=== PATIENT | male | born 1990 | race Caucasian/White ===

== ENCOUNTER 2018-01-24 23:52 | Emergency (ER) | payer OTHER ==
[2018-01-25] MEDS ORDERED: RX INFO: IV CONTRAST WAS GIVEN 1 EACH MISC MISCELLANE PRN (01:26)
[2018-01-25 01:57] LABS: Basophils # (A) 0.1 k/uL (0-0.2); Basophils % (A) 1 %; Eosinophils # (A) 0.1 k/uL (0-0.7); Eosinophils % (A) 1 %; HCT 44.3 % (39.0-53.0); HGB 16.1 gm/dL (13.0-17.5); Lymphocytes # (A) 3.9 k/uL (1.0-4.8); Lymphocytes % (A) 33 %; MCH 31.1 pg (25.0-35.0); MCHC 36.3 g/dL (31.0-37.0); MCV 85.8 fL (80.0-100.0); Mean Platelet Volume 6.6; Monocytes # (A) 0.6 k/uL (0-1.0); Monocytes % (A) 5 %; Neutrophils % (A) 59 %; Platelet Count 346 k/uL (150-450); RBC 5.17 m/uL (4.30-5.90); RDW 12.3 % (11.5-15.5)
[2018-01-25 02:10] LABS: Anion Gap 15 mmol/L; Blood Urea Nitrogen 20 mg/dL (9-20); Calcium 9.8 mg/dL (8.4-10.2); Carbon Dioxide 23 mmol/L (22-30); Chloride 105 mmol/L (98-107); Glucose 89 mg/dL (74-99); Potassium 4.1 mmol/L (3.5-5.1); Sodium 143 mmol/L (137-145)
--- NOTE | 2018-01-25 02:20 | ED ---
Eye Problem HPI - General Chief complaint: Eye Problems Stated complaint: Vision loss Time Seen by Provider: 01/25/18 01:09 Source: patient, RN notes reviewed Mode of arrival: ambulatory Limitations: no limitations - History of Present Illness Initial comments: This is a 27-year-old male who presents to the emergency department with chief complaint of vision loss. Patient states that he has been having intermittent episodes of vision loss in his left eye for the past 1-1/2 months. He states that he loses his vision in his left eye at random moments. States that the vision loss is painless. He states that when it does occur it lasts for a few seconds at a time. At first, patient states that vision loss is complete, however he then states that approximately 75% of his vision is lost. Patient states that today vision in his left eye went out approximately 10-12 times. He states the only associated symptom during these episodes of vision loss is a generalized headache. He denies any head injuries or trauma. Denies fevers or chills, chest pain or shortness of breath, abdominal pain, nausea or vomiting, diarrhea or constipation, dizziness or hearing changes. - Related Data Home Medications Medication Instructions Recorded Confirmed No Known Home Medications [No 01/25/18 01/25/18 Known Home Medications] Allergies Allergy/AdvReac Type Severity Reaction Status Date / Time No Known Allergies Allergy Verified 01/25/18 00:06 Review of Systems ROS Statement: Those systems with pertinent positive or pertinent negative responses have been documented in the HPI. ROS Other: All systems not noted in ROS Statement are negative. Past Medical History Past Medical History: No Reported History History of Any Multi-Drug Resistant Organisms: None Reported Past Surgical History: No Surgical Hx Reported Past Psychological History: ADD/ADHD, Anxiety Smoking Status: Former smoker Past Alcohol Use History: None Reported Past Drug Use History: None Reported General Exam - General Exam Comments Initial Comments: General: Awake and alert, well-developed; in no apparent distress. HEENT: Head atraumatic, normocephalic. Pupils are equal, round and reactive to light. Extraocular movements intact. Bilateral conjunctiva are non-injected. No evidence of foreign body. Oropharynx moist without erythema or exudate. Neck: Supple. Normal ROM. Cardiovascular: Regular rate and rhythm. No murmurs, rubs or gallops. Chest symmetrical. Respiratory: Lungs clear to auscultation bilaterally. No wheezes, rales or rhonchi. Normal respiratory effort with no use of accessory muscles. Musculoskeletal: Normal ROM, no tenderness bilateral upper and lower extremities. Ambulating normally. Skin: [place], warm and dry without rashes or lesions. Neurological: Alert and oriented x3. CN II-XII grossly intact. Speech is fluent and answers are appropriate. No focal neuro deficits. Psychiatric: Normal mood and affect. No overt signs of depression or anxiety noted. Limitations: no limitations Course Vital Signs 01/25/18 01/25/18 01/25/18 00:02 03:28 04:00 Temperature 98.5 F 98 F Pulse Rate 102 H 81 74 Respiratory 20 19 18 Rate Blood Pressure 165/110 158/110 145/99 O2 Sat by Pulse 98 100 100 Oximetry Medical Decision Making - Medical Decision Making This is a 27-year-old male who presented to the emergency department with chief complaint of intermittent vision loss in his left eye for the past one and half months. Patient denies any eye pain. He admits only to associated headaches. CT brain and CT angiogram of head and neck revealed no acute abnormalities. Recommended admission for neurology consult, however patient declines. He states he would rather follow up outpatient with his primary care provider. Patient also was noted to have a high blood pressure at 160s over 110. Given IV labetalol in the emergency department. Recommended following up with primary care provider regarding this blood pressure. Patient's vital signs are stabilized and he is in no acute distress. He will be discharged home at this time. Patient is in agreement with plan voices understanding. All questions were answered. - Lab Data Result diagrams: 01/25/18 01:42 01/25/18 01:42 Lab Results 01/25/18 01/25/18 Range/Units 01:42 01:42 WBC 12.0 H (3.8-10.6) k/uL RBC 5.17 (4.30-5.90) m/uL Hgb 16.1 (13.0-17.5) gm/dL Hct 44.3 (39.0-53.0) % MCV 85.8 (80.0-100.0) fL MCH 31.1 (25.0-35.0) pg MCHC 36.3 (31.0-37.0) g/dL RDW 12.3 (11.5-15.5) % Plt Count 346 (150-450) k/uL Neutrophils % 59 % Lymphocytes % 33 % Monocytes % 5 % Eosinophils % 1 % Basophils % 1 % Neutrophils # 7.0 (1.3-7.7) k/uL Lymphocytes # 3.9 (1.0-4.8) k/uL Monocytes # 0.6 (0-1.0) k/uL Eosinophils # 0.1 (0-0.7) k/uL Basophils # 0.1 (0-0.2) k/uL Sodium 143 (137-145) mmol/L Potassium 4.1 (3.5-5.1) mmol/L Chloride 105 (98-107) mmol/L Carbon Dioxide 23 (22-30) mmol/L Anion Gap 15 mmol/L BUN 20 (9-20) mg/dL Creatinine 0.80 (0.66-1.25) mg/dL Est GFR (CKD-EPI)AfAm >90 (>60 ml/min/1.73 sqM) Est GFR (CKD-EPI)NonAf >90 (>60 ml/min/1.73 sqM) Glucose 89 (74-99) mg/dL Calcium 9.8 (8.4-10.2) mg/dL - Radiology Data Radiology results: report reviewed CT brain conclusion: Normal computed tomography scan of the brain. CT angiogram head and neck conclusion: Negative CT angiogram of the neck. Negative CT angiogram of the brain. Disposition Clinical Impression: Vision loss Disposition: HOME SELF-CARE Condition: Good Instructions: Blurred Vision (ED) Additional Instructions: Please follow up with primary care provider within 1-2 days. Return to emergency department if symptoms should worsen or any concerns arise. Is patient prescribed a controlled substance at discharge?: No Referrals: Jazmin Valencia DO [Primary Care Provider] - 1-2 days Time of Disposition: 03:33
--- NOTE | 2018-01-25 02:52 | CT ---
EXAMINATION TYPE: CT angio head neck DATE OF EXAM: 01/25/2018 HISTORY: headache COMPARISON: NONE CT DLP: 1619.70 mGycm. Automated Exposure Control for Dose Reduction was Utilized. TECHNIQUE: CTA scan of the head and neck is performed with IV Contrast, patient injected with 65 mL of Isovue 370, axial images are obtained, coronal and sagittal reformatted images are reviewed. Three -D reconstructed images are created on an independent workstation and reviewed. FINDINGS: There is normal branching pattern of the great vessels on the aortic arch. There is wide patency of t he common internal and external carotid arteries. There is no evidence of stenosis or dissection. The right vertebral artery is slightly larger than the left. There is arterial flow in the vertebrobasilar artery system. There is arterial flow in the anterior middle and posterior cerebral arteries. I see no evidence of a neurysm or neovascularity. There is no evidence of arterial stenosis. There is no mass effect. There is normal contrast opacification of the venous sinuses. CONCLUSION: Negative CT angiogram of the neck. Negative CT angiogram of the brain.
--- NOTE | 2018-01-25 02:53 | CT ---
EXAMINATION TYPE: CT brain wo con DATE OF EXAM: 01/25/2018 COMPARISON: NONE HISTORY: headache CT DLP: 1619.70 mGycm. Automated Exposure Control for Dose Reduction was Utilized. TECHNIQUE: CT scan of the head is performed without contrast. FINDINGS: Ventricles and sulci appear normal. There is no mass effect nor midline shift. There is n o sign of intracranial hemorrhage. Calvarium is intact. CONCLUSION: Normal CT scan of the brain.
[2018-01-25] MEDS ORDERED: LABETALOL 5 MG/ML VIAL MDV IVP STA (03:32)
[2018-01-25 04:01] VITALS: BP 145/99; PULSE 74; RESP 18; TEMP 98
== END 2018-01-25 04:08 | disposition home or self-care (01) ==
LOC: EC 23:52
DX: H54.7 Unspecified visual loss (principal); R51 Headache; R03.0 Elevated blood-pressure reading, without diagnosis of hypertension; Z87.891 Personal history of nicotine dependence
CPT/HCPCS: 36415; 80048; 85025; 70496; 70450; 70498; 99284; 96374; Q9967

== ENCOUNTER 2022-03-08 11:08 | Emergency (ER) | payer OTHER ==
--- NOTE | 2022-03-08 12:32 | XR ---
EXAMINATION TYPE: XR chest 2V DATE OF EXAM: 03/08/2022 COMPARISON: 11/11/2011 INDICATION: Difficulty breathing, cough TECHNIQUE: Frontal and lateral views of the chest are obtained. FINDINGS: The heart size is prominent. The pulmonary vasculature is normal. Mild diffuse increased lung markings are present bilaterally at the lung bases. Correlate for atelect asis and pneumonia. Follow-up is recommended. IMPRESSION: 1. Bibasilar infiltrates. Correlate for atelectasis and pneumonia. 2. Mild cardiomegaly
[2022-03-08] MEDS ORDERED: SODIUM CHLORIDE 0.9% 1,000 ML IV STA (12:54)
[2022-03-08] MEDS ORDERED: ALBUTEROL HFA INHALER INHALATION STA (12:54)
--- NOTE | 2022-03-08 13:00 | ED ---
General Adult HPI - General Chief complaint: Shortness of Breath Stated complaint: SOB Time Seen by Provider: 03/08/22 12:47 Source: patient, RN notes reviewed Mode of arrival: ambulatory Limitations: no limitations - History of Present Illness Initial comments: Patient is a pleasant 31-year-old male presenting to the emergency Department with cough. Symptoms started around 2 weeks ago. Patient does have productive yellow sputum. Patient is slightly more fatigued than normal. He should does have some exertional dyspnea. Patient may have some mild sinus congestion however this is chronic and fairly unchanged. No fevers. No leg pain or leg sw elling. No history of chronic lung problems. - Related Data Previous Rx's Medication Instructions Recorded Albuterol Sulfate [Albuterol 2 puff INHALATION Q6H PRN #8.5 gm 03/08/22 Sulfate Hfa] Azithromycin [Zithromax Z-pack (6 250 mg PO DIRECTED #6 tab 03/08/22 tabs)] Allergies Allergy/AdvReac Type Severity Reaction Status Date / Time No Known Allergies Allergy Verified 03/08/22 11:36 Review of Systems ROS Statement: Those systems with pertinent positive or pertinent negative responses have been documented in the HPI. ROS Other: All systems not noted in ROS Statement are negative. Constitutional: Denies: fever ENT: Denies: ear pain Respiratory: Reports: as per HPI, cough Cardiovascular: Denies: chest pain Endocrine: Reports: fatigue Gastrointestinal: Denies: abdominal pain, vomiting, diarrhea Genitourinary: Denies: dysuria Musculoskeletal: Denies: back pain Skin: Denies: rash Neurological: Denies: weakness Past Medical History Past Medical History: No Reported History History of Any Multi-Drug Resistant Organisms: None Reported Past Surgical History: No Surgical Hx Reported Past Psychological History: ADD/ADHD, Anxiety Past Alcohol Use History: None Reported Past Drug Use History: None Reported General Exam Limitations: no limitations General appearance: alert Head exam: Present: normocephalic Eye exam: Present: normal appearance Neck exam: Present: normal inspection Respiratory exam: Present: rhonchi Cardiovascular Exam: Present: tachycardia GI/Abdominal exam: Present: soft. Absent: tenderness Extremities exam: Present: normal inspection. Absent: pedal edema, calf tenderness Neurological exam: Present: alert Psychiatric exam: Present: normal affect, normal mood Skin exam: Present: normal color Course Vital Signs 03/08/22 03/08/2203/08/22 11:30 13:15 14:41 Temperature 98.4 F Pulse Rate 118 H 117 H 108 H Respiratory 22 18 18 Rate Blood Pressure 200/143 198/139 161/104 O2 Sat by Pulse 98 96 95 Oximetry Medical Decision Making - Medical Decision Making Patient reevaluated and resting complain bed. Patient feels much better following inhaler. Blood pressure and heart rate have improved. Heart rate 89. Blood pressure patient states chronicly is elevated when he does not feel well. Patient refuses medication for this. Patient feels a will correct itself when he feels better. Patient is agreeable to close follow-up with his doctor reg arding his blood pressure. - Lab Data Result diagrams: 03/08/22 13:12 03/08/22 13:12 Lab Results 03/08/22 03/08/22 03/08/22 Range/Units 13:12 13:12 13:12 WBC 11.6 H (3.8-10.6) k/uL RBC 5.49 (4.30-5.90) m/uL Hgb 16.6 (13.0-17.5) gm/dL Hct 48.6 (39.0-53.0) % MCV 88.4 (80.0-100.0) fL MCH 30.3 (25.0-35.0) pg MCHC 34.3 (31.0-37.0) g/dL RDW 13.2 (11.5-15.5) % Plt Count 377 (150-450) k/uL MPV 7.9 Neutrophils % 66 % Lymphocytes % 25 % Monocytes % 5 % Eosinophils % 2 % Basophils % 0 % Neutrophils # 7.7 (1.3-7.7) k/uL Lymphocytes # 2.9 (1.0-4.8) k/uL Monocytes # 0.6 (0-1.0) k/uL Eosinophils # 0.2 (0-0.7) k/uL Basophils # 0.0 (0-0.2) k/uL PT 9.8 (9.0-12.0) sec INR 0.9 (<1.2) APTT 26.5 (22.0-30.0) sec D-Dimer 0.52 (<0.60) mg/L FEU Sodium 138 (137-145) mmol/L Potassium 4.6 (3.5-5.1) mmol/L Chloride 109 H (98-107) mmol/L Carbon Dioxide 18 L (22-30) mmol/L Anion Gap 11 mmol/L BUN 16 (9-20) mg/dL Creatinine 0.99 (0.66-1.25) mg/dL Est GFR (CKD-EPI)AfAm >90 (>60 ml/min/1.73 sqM) Est GFR (CKD-EPI)NonAf >90 (>60 ml/min/1.73 sqM) Glucose 98 (74-99) mg/dL Plasma Lactic Acid [place] (0.7-2.0) mmol/L Calcium 9.0 (8.4-10.2) mg/dL Total Bilirubin 0.7 (0.2-1.3) mg/dL AST 35 (17-59) U/L ALT 35 (4-49) U/L Alkaline Phosphatase 65 (38-126) U/L NT-Pro-B Natriuret Pep pg/mL Total Protein 7.5 (6.3-8.2) g/dL Albumin 4.3 (3.5-5.0) g/dL Coronavirus (PCR) (Not Detectd) Influenza Type A RNA (Not Detectd) Influenza Type B (PCR) (Not Detectd) 03/08/22 03/08/22 03/08/22 Range/Units 13:12 13:12 13:12 WBC (3.8-10.6) k/uL RBC (4.30-5.90) m/uL Hgb (13.0-17.5) gm/dL Hct (39.0-53.0) % MCV (80.0-100.0) fL MCH (25.0-35.0) pg MCHC (31.0-37.0) g/dL RDW (11.5-15.5) % Plt Count (150-450) k/uL MPV Neutrophils % % Lymphocytes % % Monocytes % % Eosinophils % % Basophils % % Neutrophils # (1.3-7.7) k/uL Lymphocytes # (1.0-4.8) k/uL Monocytes # (0-1.0) k/uL Eosinophils # (0-0.7) k/uL Basophils # (0-0.2) k/uL PT (9.0-12.0) sec INR (<1.2) APTT (22.0-30.0) sec D-Dimer (<0.60) mg/L FEU Sodium (137-145) mmol/L Potassium (3.5-5.1) mmol/L Chloride (98-107) mmol/L Carbon Dioxide (22-30) mmol/L Anion Gap mmol/L BUN (9-20) mg/dL Creatinine (0.66-1.25) mg/dL Est GFR (CKD-EPI)AfAm (>60 ml/min/1.73 sqM) Est GFR (CKD-EPI)NonAf (>60 ml/min/1.73 sqM) Glucose (74-99) mg/dL Plasma Lactic Acid [place] 1.1 (0.7-2.0) mmol/L Calcium (8.4-10.2) mg/dL Total Bilirubin (0.2-1.3) mg/dL AST (17-59) U/L ALT (4-49) U/L Alkaline Phosphatase (38-126) U/L NT-Pro-B Natriuret Pep 680 pg/mL Total Protein (6.3-8.2) g/dL Albumin (3.5-5.0) g/dL Coronavirus (PCR) (Not Detectd) Influenza Type A RNA Not Detected (Not Detectd) Influenza Type B (PCR) Not Detected (Not Detectd) 03/08/22 Range/Units 13:12 WBC (3.8-10.6) k/uL RBC (4.30-5.90) m/uL Hgb (13.0-17.5) gm/dL Hct (39.0-53.0) % MCV (80.0-100.0) fL MCH (25.0-35.0) pg MCHC (31.0-37.0) g/dL RDW (11.5-15.5) % Plt Count (150-450) k/uL MPV Neutrophils % % Lymphocytes % % Monocytes % % Eosinophils % % Basophils % % Neutrophils # (1.3-7.7) k/uL Lymphocytes # (1.0-4.8) k/uL Monocytes # (0-1.0) k/uL Eosinophils # (0-0.7) k/uL Basophils # (0-0.2) k/uL PT (9.0-12.0) sec INR (<1.2) APTT (22.0-30.0) sec D-Dimer (<0.60) mg/L FEU Sodium (137-145) mmol/L Potassium (3.5-5.1) mmol/L Chloride (98-107) mmol/L Carbon Dioxide (22-30) mmol/L Anion Gap mmol/L BUN (9-20) mg/dL Creatinine (0.66-1.25) mg/dL Est GFR (CKD-EPI)AfAm (>60 ml/min/1.73 sqM) Est GFR (CKD-EPI)NonAf (>60 ml/min/1.73 sqM) Glucose (74-99) mg/dL Plasma Lactic Acid [place] (0.7-2.0) mmol/L Calcium (8.4-10.2) mg/dL Total Bilirubin (0.2-1.3) mg/dL AST (17-59) U/L ALT (4-49) U/L Alkaline Phosphatase (38-126) U/L NT-Pro-B Natriuret Pep pg/mL Total Protein (6.3-8.2) g/dL Albumin (3.5-5.0) g/dL Coronavirus (PCR) Not Detected (Not Detectd) Influenza Type A RNA (Not Detectd) Influenza Type B (PCR) (Not Detectd) - Radiology Data Radiology results: image reviewed (This x-ray with concerns for bilateral lower lobe infiltrates versus atelectasis mild cardiomegaly.) Disposition Clinical Impression: Pneumonia Disposition: HOME SELF-CARE Condition: Stable Instructions (If sedation given, give patient instructions): Community Acquired Pneumonia (ED), Hypertension (ED) Additional Instructions: Please follow-up with your primary care physician in the beginning of the week. Have primary care physician recheck blood pressure. Return for difficulty breathing, fevers, uncontrolled blood pressure, worsening symptoms or other concerns. Prescription has been sent to pharmacy. Prescriptions: Albuterol Sulfate [Albuterol Sulfate Hfa] 2 puff INHALATION Q6H PRN #8.5 gm PRN Reason: Shortness Of Breath Azithromycin [Zithromax Z-pack (6 tabs)] 250 mg PO DIRECTED #6 tab Is patient prescribed a controlled substance at d/c from ED?: No Referrals: Jazmin Valencia DO [Primary Care Provider] - 1-2 days Time of Disposition: 15:03
[2022-03-08 13:21] VITALS: RESP 18
[2022-03-08 13:41] LABS: Basophils % (A) 0 %; Eosinophils # (A) 0.2 k/uL (0-0.7); Eosinophils % (A) 2 %; HCT 48.6 % (39.0-53.0); HGB 16.6 gm/dL (13.0-17.5); Lymphocytes # (A) 2.9 k/uL (1.0-4.8); Lymphocytes % (A) 25 %; MCH 30.3 pg (25.0-35.0); MCHC 34.3 g/dL (31.0-37.0); MCV 88.4 fL (80.0-100.0); Mean Platelet Volume 7.9; Monocytes # (A) 0.6 k/uL (0-1.0); Monocytes % (A) 5 %; Neutrophils # (A) 7.7 k/uL (1.3-7.7); Neutrophils % (A) 66 %; Platelet Count 377 k/uL (150-450); RBC 5.49 m/uL (4.30-5.90); RDW 13.2 % (11.5-15.5); WBC 11.6 k/uL (3.8-10.6)
[2022-03-08 13:47] LABS: ALT 35 U/L (4-49); African American GFR (CKD) >90 (>60 ml/min/1.73 sqM); Albumin 4.3 g/dL (3.5-5.0); Anion Gap 11 mmol/L; Blood Urea Nitrogen 16 mg/dL (9-20); Carbon Dioxide 18 mmol/L (22-30); Chloride 109 mmol/L (98-107); Glucose 98 mg/dL (74-99); Non-African American GFR(CKD) >90 (>60 ml/min/1.73 sqM); Sodium 138 mmol/L (137-145); Total Bilirubin 0.7 mg/dL (0.2-1.3); Total Protein 7.5 g/dL (6.3-8.2)
[2022-03-08 13:48] LABS: INR 0.9 (<1.2); Partial Thromboplastin Time 26.5 sec (22.0-30.0); Prothrombin Time 9.8 sec (9.0-12.0)
[2022-03-08] MEDS ORDERED: LABETALOL 5 MG/ML VIAL MDV IVP STA (13:50)
[2022-03-08 13:53] LABS: AST 35 U/L (17-59); Alkaline Phosphatase 65 U/L (38-126); Potassium 4.6 mmol/L (3.5-5.1)
[2022-03-08] MEDS ORDERED: AZITHROMYCIN 500 MG TAB PO STA (15:03)
[2022-03-08 15:49] VITALS: BP 129/99; PULSE 88; TEMP 98.5
== END 2022-03-08 15:53 | disposition home or self-care (01) ==
LOC: EC 11:08
DX: J18.9 Pneumonia, unspecified organism (principal); Z20.822 Contact with and (suspected) exposure to COVID-19
CPT/HCPCS: 36415; 71046; 80053; 83605; 83880; 85025; 85379; 85610; 85730; 87040; 87502; 87635; 93005; 94640

== ENCOUNTER → 2024-12-22 | Outpatient (CLI) | payer BC ==
--- NOTE | 2024-12-22 16:58 | CT ---
EXAMINATION TYPE: CT angio chest CT DLP: 1093 mGycm, Automated exposure control for dose reduction was used. DATE OF EXAM: 12/22/2024 4:41 PM COMPARISON: Chest radiograph 03/08/2022. CLINICAL INDICATION:Male, 34 years old with history of I71.20 THORACIC AORTIC ANEURYSM, WITHOUT RUPTU RE,; aneurysm TECHNIQUE/CONTRAST: CTA scan of the thorax is performed without and with IV Contrast, patient injected with 100 ml mL of Isovue 370. MIP images are created and reviewed. FINDINGS: Pulmonary Artery: There is no evidence for a filling defect within the pulmonary vasculature to sugge st acute pulmonary embolism. The pulmonary artery is of normal size. Lungs/Pleura: No evidence of focal consolidation, pleural effusion or pneumothorax. Left lower lobe 4 .5 mm pulmonary nodule (series 9, image 99). Doubtful clinical significance in this patient's age destiny up. Airway: Large airways are patent. Heart: Size within normal limits.No pericardial effusion. No significant coronary artery calcificatio ns. Vasculature: Bovine aortic arch. No active atherosclerotic calcification of the aorta and its branche s. No intramural hematoma or dissection. Aneurysmal dilatation of the aortic root measuring up to 4.4 cm. The ascending thoracic aorta measures up to 4.3 cm. The descending thoracic aorta measures up to 2.3 cm. Dilated main pulmonary artery measuring up to 3.5 cm. Can be seen with pulmonary hypertensio n. No filling defect is identified within the pulmonary arteries to suggest pulmonary embolism. The v isualized celiac access, SMA, and bilateral single renal arteries are widely patent. Mediastinum: No evidence of adenopathy. Musculoskeletal: No acute osseous abnormalities Soft Tissues: Unremarkable. Lower neck: No significant findings. Upper Abdomen: No significant findings. IMPRESSION: Aneurysmal dilatation of the aortic root and ascending thoracic aorta measuring up to 4.4 and 4.3 cm respectively. No evidence for intramural hematoma or dissection. [facility], , 12/22/2024 4:55 PM
== END | disposition home or self-care (01) ==
LOC: RADCTMAIN 15:55
PROVIDERS: ATTEND Internal Medicine Interventional Cardiology
DX: I71.20 Thoracic aortic aneurysm, without rupture, unspecified (principal)
CPT/HCPCS: 71275; Q9967

== ENCOUNTER → 2025-03-28 | Outpatient (CLI) | payer BC ==
[2025-03-28 14:31] VITALS: BP 128/79; PULSE 90; RESP 16; TEMP 98
--- NOTE | 2025-03-28 15:03 | P.SLEEP ---
History of Present Illness DATE: 03/28/2025 CONSULTATION/NEW PATIENT EVALUATION HISTORY OF PRESENT ILLNESS/SLEEP-WAKE EVALUATION: 34-year-old gentleman had b een evaluated in the sleep center for possible obstructive sleep apnea hypopnea syndrome. Patient had sleep study several years ago in another institution, was started on treatment with CPAP, but for different reasons was not able to use CPAP equipment and then lost it. SLEEP SCHEDULE: Usually sleep schedule 1 working days from 4 AM until 11 AM and from 11 PM until 11 AM on weekend.. FALLING ASLEEP: Sometimes patient has difficulties with falling asleep. DURING SLEEP: Patient has loud snoring and witnessed episodes of stop breathing during the sleep while patient was in the hospital. No history of hypnogogical hallucinations, sleep paralysis, or cataplexy. DURING THE DAY/WAKE STATE: In the morning patient wake up tired, falling asleep during the day, has problems with concentration and irritability.. Loco sleepiness scale is significantly increased to 14. Patient may take up to 2 naps late afternoon. PAST MEDICAL HISTORY: CHF, hypertension, ADHD, anxiety. PAST SURGICAL HISTORY: None. MEDICATIONS: Please see below, additionally beta-ray patient does not remember the name, amlodipine, Entresto. SOCIAL HISTORY: Please see below. FAMILY HISTORY: Please see below. REVIEW OF SYSTEMS: Snoring, multiple awakenings from sleep, sleepiness during the day. No fevers. No double vision. No recent chest pain. No shortness of breath. No abdominal pain. No bleeding episodes. No blood in urine. No seizure episodes. PHYSICAL EXAMINATION: GENERAL: A pleasant patient without any distress. VITAL SIGNS: Please see below, weight 352 pounds, BMI 47.7. HEENT: PERRLA, EOMI. Evaluation of oropharynx showed tongue protrudes midline, low position of soft palate Mallampati 4. NECK: Supple. No JVD. Thyroid is not palpable. 19 inches in circumference. LUNGS: Clear to percussion and to auscultation. Good air exchange. No wheezing or rhonchi. HEART: S1, S2 regular. No murmurs, gallops or rubs. ABDOMEN: Soft and nontender. Bowel sounds are present. No organomegaly a ppreciated. EXTREMITIES: No clubbing or cyanosis, 1+ lower leg edema. COURT ASSISTANT: Awake, alert, and oriented x3. Cranial nerves 2 to 7 intact. There is no fasciculation or atrophy noted. No focal deficits observed. ASSESSMENT: 1. Loud snoring, witnessed episodes of stop breathing during the sleep, history of obstructive sleep apnea in the past, extremely low position of soft palate Mallampati 4, wide neck 19 inches in circumference, sleepiness with Loco Sleepiness Scale 14. Obstructive sleep apnea hypopnea syndrome. 2. Obesity, BMI 47.7. 3. Hypertension. 4. History of CHF. 5 ADHD. 6 . Anxiety. PLAN: 1. Polysomnography for evaluation of patient's breathing during sleep. 2. CPAP/BiPAP titration if sleep study confirms obstructive sleep apnea- hypopnea syndrome. 3. Preferable position during sleep on the side. 4. No driving if patient feels any sleepiness. Patient is aware of civil and criminal liability for unsafe driving. 5. Sleep hygiene with regular sleep time for at least 7.5-8 hours. 6. Watching and losing weight. Thank you very much for referring this patient for consultation. Sincerely, Waylon Claudio MD, PhD, FAASM. Diplomat of [employer], Sleep Medicine Board by [employer] [facility] [place] cc: Jazmin Valencia DO Past Medical History Past Medical History: Coronary Artery Disease (CAD), Heart Failure, Hypertension, Sleep Apnea/CPAP/BIPAP History of Any Multi-Drug Resistant Organisms: None Reported Past Surgical History: Heart Catheterization Past Anesthesia/Blood Transfusion Reactions: No Reported Reaction Past Psychological History: ADD/ADHD, Anxiety Smoking Status: Former smoker Past Alcohol Use History: None Reported Past Drug Use History: None Reported - Past Family History Father Family Medical History: Coronary Artery Disease (CAD), Hypertension, Sleep Apnea/CPAP/BIPAP Additional Family Medical History / Comment(s): Mental illness Mother Additional Family Medical History / Comment(s): Mom or moms side had asthma, mental illness Medications and Allergies Home Medications Medication Instructions Recorded Confirmed Type Albuterol Sulfate [Albuterol 2 puff INHALATION Q6H PRN #8.5 gm 03/08/22 03/28/25 Rx Sulfate Hfa] Azithromycin [Zithromax Z-pack (6 250 mg PO DIRECTED #6 tab 03/08/22 Rx tabs)] ALPRAZolam [Xanax] 0.5 mg PO DIRECTED PRN 03/28/25 03/28/25 History Dextroamphetamine/Amphetamine 30 mg PO DAILY 03/28/25 03/28/25 History [Adderall Xr 30 mg Capsule] Furosemide [Lasix] 20 mg PO DIRECTED PRN 03/28/25 03/28/25 History Allergies Allergy/AdvReac Type Severity Reaction Status Date / Time No Known Allergies Allergy Verified 03/08/22 11:36 Physical Exam Vitals: Vital Signs Temp Pulse Resp BP Pulse Ox 03/28/25 14:29 98 F 90 16 128/79 97 Intake and Output 03/27/25 03/28/25 03/28/25 22:59 06:59 14:59 Other: Weight 159.665 kg Sleep Note - Sleep Data ESS Total: 14 - Sleep Note Sleep Note: Temperature: 98 F Pulse Rate: 90 Respiratory Rate: 16 Blood Pressure: 128/79 SpO2: 97 Height: 6 ft Weight: 159.665 kg BMI: Neck Circumference: 19
== END ==
LOC: 3 N SLEEP 13:34
PROVIDERS: ATTEND Internal Medicine
DX: G47.33 Obstructive sleep apnea (adult) (pediatric) (principal); E66.9 Obesity, unspecified; I10 Essential (primary) hypertension; F90.9 Attention-deficit hyperactivity disorder, unspecified type; F41.9 Anxiety disorder, unspecified; Z86.79 Personal history of other diseases of the circulatory system; Z68.42 Body mass index [BMI] 45.0-49.9, adult; Z87.891 Personal history of nicotine dependence
CPT/HCPCS: 99211